=== PATIENT | male | born 1965 | race African-American/Black ===

== ENCOUNTER 2022-02-20 10:39 | Emergency (ER) | payer SELFPAY ==
[~2022-02-20] VITALS: Ht 180.3 cm; Wt 73.0 kg
[2022-02-20 10:43] VITALS: BP 112/69
[2022-02-20] MEDS ORDERED: ACYCLOVIR 400 MG TABLET PO ONE (13:30)
[2022-02-20] MEDS ORDERED: GABAPENTIN 300MG CAPSULE PO ONE (13:30)
[2022-02-20] MEDS ORDERED: TETRACAINE 0.5% OPHTH DROPS 4ML RIGHTEYE ONE (14:00)
[2022-02-20] MEDS ORDERED: FLUORESCEIN SODIUM 1MG/STRIP RIGHTEYE ONE (14:00)
[2022-02-20 14:40] LABS: HEMATOCRIT. 40.8 % (42.0-52.0); HEMOGLOBIN. 13.2 g/dL (14.0-18.0); MEAN CORPUSCULAR VOLUME 74.1 fL (80.0-94.0); PLATELET 314 x1000/uL (130-400); RED CELL DISTRIBUTION WIDTH 15.7 % (11.6-14.6)
[2022-02-20 14:50] LABS: CHLORIDE 108 mEq/L (98-107)
[2022-02-20] MEDS ORDERED: DEXAMETHASONE 10 MG/ML VIAL IV ONE (16:00)
[2022-02-20] MEDS ORDERED: KETOROLAC 30MG/ML VIAL IV ONE (16:00)
[2022-02-20] MEDS ORDERED: LIDO700A30 TP (16:35)
[2022-02-20] MEDS ORDERED: HYDR-4009 MT (16:35)
[2022-02-20] MEDS ORDERED: ACYC200C31 MT (16:35)
[2022-02-20 17:51] LABS: PLATELET ESTIMATE NORMAL
== END 2022-02-20 17:01 | disposition home or self-care (01) ==
LOC: ER 10:39
DX: B02.39 Other herpes zoster eye disease (principal); F12.10 Cannabis abuse, uncomplicated; I49.9 Cardiac arrhythmia, unspecified
CPT/HCPCS: 36415; 80053; 85025; 93005; 96374; 96375; 99284; J1100; J1885

== ENCOUNTER 2022-04-10 09:37 | Emergency (ER) | payer SELFPAY ==
[~2022-04-10] VITALS: Ht 180.3 cm; Wt 73.0 kg
[~2022-04-10 09:37] MED LIST: ACYC200C31 MT; HYDR-4009 MT; LIDO700A30 TP
[2022-04-10 09:59] VITALS: BP 114/77
== END 2022-04-10 11:17 | disposition home or self-care (01) ==
LOC: ER 09:56
DX: B02.9 Zoster without complications (principal)
CPT/HCPCS: 99281